=== PATIENT | female | born 1990 | race Two or more races ===

== ENCOUNTER 2017-06-28 13:52 | Emergency (ER) | payer MEDICAID ==
[2017-06-28 13:59] VITALS: BP 150/89; PULSE 90; RESP 16; TEMP 97.7; O2SAT 96
[2017-06-28 14:13] LABS: PLATELET COUNT 288 10^3/uL (150-400)
[2017-06-28 14:26] LABS: INR 0.97 (0.83-1.16); PROTIME(PATIENT) 12.8 SEC (12.0-15.0)
--- NOTE | 2017-06-28 14:27 | EDPHY ---
H & P Time Seen by Provider: 06/28/17 14:01 HPI/ROS: CHIEF COMPLAINT: Rectal bleeding HISTORY OF PRESENT ILLNESS: The patient is a 27-year-old female presents to the emergency department with rectal bleeding. Her symptoms have been present for the past 5 days. She states it occurs when she has a bowel movement. She notices bright red blood in the toilet. She states she has a burning sensation "like I have a cut. "Patient states that she has recently been constipated. She reports having mild dizziness. No lightheadedness. No chest pain or shortness of breath. No fevers or chills. REVIEW OF SYSTEMS: My complete review of systems is negative except as mentioned in the HPI. Past Medical/Surgical History: Negative Past surgical history: Social history: The patient does not smoke Smoking Status: Never smoked Physical Exam: Vitals noted GENERAL: Well-appearing, in no acute distress, alert. HEENT: Eyes normal to inspection, normal pharynx, no signs of dehydration. NECK: [No thyromegaly, no lymphadenopathy, supple. RESPIRATORY: Clear to auscultation bilaterally, no rales, rhonchi or wheezing. CVS: Regular rate and rhythm, no rubs, murmurs, or gallops. ABDOMEN: Soft, nontender, nondistended, no organomegaly. Rectal: Patient has no palpable mass. No visible bleeding or abnormality. Nurse was present for exam. BACK: Normal to inspection, no CVA tenderness. SKIN: Normal color, no rash, warm, dry. No pallor. EXTREMITIES: No pedal edema, no calf tenderness, no Homans sign or cords, no joint swelling. NEURO/PSYCH: Alert and oriented x3, normal mood and affect, normal motor sensory exam. No obvious cranial nerve deficit. Constitutional: Initial Vital Signs Temperature (C) 36.5 C 06/28/17 13:56 Heart Rate 90 06/28/17 13:56 Respiratory Rate 16 06/28/17 13:56 Blood Pressure 150/89 H 06/28/17 13:56 O2 Sat (%) 96 06/28/17 13:56 O2 Delivery Mode Room Air Allergies/Adverse Reactions: No Known Allergies Allergy (Verified 06/28/17 13:59) Home Medications: Medication Instructions Recorded NK [No Known Home Meds] 06/28/17 Medical Decision Making ED Course/Re-evaluation: In the emergency department I discussed possible etiologies with the patient. I answered all her questions. Laboratory studies were obtained. Patient's CBC and chemistry were unremarkable. I discussed the results with the patient. I gave him warnings prior to leaving. She will return with worsening symptoms. Differential Diagnosis: My differential includes but is not limited to rectal fissure, internal hemorrhoid, external hemorrhoid, mass, malignancy - Data Points Laboratory Results: Laboratory Results 06/28/17 14:05 06/28/17 06/28/17 06/28/17 14:05 14:05 14:05 WBC RBC Hgb Hct MCV MCH MCHC RDW Plt Count MPV Neut % (Auto) Lymph % (Auto) Morrow % (Auto) Eos % (Auto) Baso % (Auto) Nucleat RBC Rel Count Absolute Neuts (auto) Absolute Lymphs (auto) Absolute Monos (auto) Absolute Eos (auto) Absolute Basos (auto) Absolute Nucleated RBC Immature Gran % Immature Gran # PT Pending INR Pending APTT Pending Sodium Pending Potassium Pending Chloride Pending Carbon Dioxide Pending Anion Gap Pending BUN Pending Creatinine Pending Estimated GFR Pending Glucose Pending Calcium Pending Beta HCG, Qual Pending 06/28/17 14:05 WBC 7.60 10^3/uL 10^3/uL (3.80-9.50) RBC 4.57 10^6/uL 10^6/uL (4.18-5.33) Hgb 13.5 g/dL g/dL (12.6-16.3) Hct 38.7 % % (38.0-47.0) MCV 84.7 fL fL (81.5-99.8) MCH 29.5 pg pg (27.9-34.1) MCHC 34.9 g/dL g/dL (32.4-36.7) RDW 15.4 % H % (11.5-15.2) Plt Count 288 10^3/uL 10^3/uL (150-400) MPV 9.6 fL fL (8.7-11.7) Neut % (Auto) 46.5 % % (39.3-74.2) Lymph % (Auto) 38.0 % % (15.0-45.0) Morrow % (Auto) 9.2 % % (4.5-13.0) Eos % (Auto) 5.3 % % (0.6-7.6) Baso % (Auto) 0.7 % % (0.3-1.7) Nucleat RBC Rel Count 0.0 % % (0.0-0.2) Absolute Neuts (auto) 3.54 10^3/uL 10^3/uL (1.70-6.50) Absolute Lymphs (auto) 2.89 10^3/uL 10^3/uL (1.00-3.00) Absolute Monos (auto) 0.70 10^3/uL 10^3/uL (0.30-0.80) Absolute Eos (auto) 0.40 10^3/uL 10^3/uL (0.03-0.40) Absolute Basos (auto) 0.05 10^3/uL 10^3/uL (0.02-0.10) Absolute Nucleated RBC 0.00 10^3/uL 10^3/uL (0-0.01) Immature Gran % 0.3 % % (0.0-1.1) Immature Gran # 0.02 10^3/uL 10^3/uL (0.00-0.10) PT INR APTT Sodium Potassium Chloride Carbon Dioxide Anion Gap BUN Creatinine Estimated GFR Glucose Calcium Beta HCG, Qual Departure - Departure Disposition: Home, Routine, Self-Care Clinical Impression: Anal fissure Condition: Good Instructions: Anal Fissure (ED) Additional Instructions: Make sure you are not constipated. Use Metamucil to 3 times daily. Referrals: Chitra Membreno MD [Medical Doctor] - 5-7 days, if not improved
== END 2017-06-28 14:38 | disposition home or self-care (01) ==
LOC: CED 13:52
DX: K60.2 Anal fissure, unspecified (principal)
CPT/HCPCS: 80048-PO; 84703-PO; 85025-PO; 85610-PO; 85730-PO